=== PATIENT | male | born 1940 | race Caucasian/White ===

== ENCOUNTER 2017-08-03 20:01 | Inpatient (IN) | payer MEDICARE ==
[2017-08-03 20:43] LABS: ADD MAN DIFF? NO
[2017-08-03 20:46] LABS: BASO # 0.1 x10^3/uL (0.0-0.2); BASO % 1 % (0-3); EOS % 0 % (0-3); HEMATOCRIT 43.5 % (39.0-53.0); HEMOGLOBIN 14.9 g/dL (13.0-17.5); LYMPH # 1.3 x10^3/uL (1.0-4.8); LYMPH % 11 % (24-48); MEAN CORPUSCULAR HEMOGLOBIN 32 pg (25-35); MEAN CORPUSCULAR HGB CONC 34 g/dL (31-37); MEAN CORPUSCULAR VOLUME 92 fL (79-100); MONO % 8 % (0-9); NEUT # 9.5 x10^3uL (1.8-7.7); NEUT % 80 % (31-73); PLATELET COUNT 265 x10^3/uL (140-400); RED BLOOD COUNT 4.72 x10^6/uL (4.30-5.70); RED CELL DISTRIBUTION WIDTH 14.1 % (11.5-14.5); WHITE BLOOD COUNT 11.9 x10^3/uL (4.0-11.0)
[2017-08-03] MEDS: IV NORMAL SALINE 1000ML BAG 1,000 ML IV ×2 (20:48→22:00)
[2017-08-03 20:57] LABS: ANION GAP 13 (6-14); BLOOD UREA NITROGEN 25 mg/dL (8-26); BUN/CREATININE RATIO 17 (6-20); CARBON DIOXIDE 24 mmol/L (21-32); CHLORIDE 100 mmol/L (98-107); CREATININE 1.5 mg/dL (0.7-1.3); GFR 45.6; GLUCOSE 109 mg/dL (70-99); POTASSIUM 5.1 mmol/L (3.5-5.1); SODIUM 137 mmol/L (136-145)
[2017-08-03 20:58] LABS: PROTHROMBIN TIME PATIENT 12.9 SEC (11.7-14.0)
[2017-08-03 21:00] LABS: ETHANOL < 10 mg/dL (0-10)
[2017-08-03 21:07] LABS: LACTIC ACID 3.2 mmol/L (0.4-2.0)
[2017-08-03 21:09] LABS: NT-PRO BNP 1957 pg/mL (0-449)
[2017-08-03 21:10] LABS: TROPONINI 0.122 ng/mL (0.000-0.055)
[2017-08-03 21:12] LABS: ALBUMIN 3.2 g/dL (3.4-5.0); ALBUMIN/GLOBULIN RATIO 0.8 (1.0-1.7); ALK PHOS 122 U/L (46-116); ALT (SGPT) 21 U/L (16-63); AST (SGOT) 64 U/L (15-37); TOTAL BILIRUBIN 0.8 mg/dL (0.2-1.0); TOTAL PROTEIN 7.3 g/dL (6.4-8.2)
[2017-08-03 21:13] LABS: CREATINE KINASE 2899 U/L (39-308)
[2017-08-03 21:14] LABS: BASE EXCESS ABG -2 mmol/L (-3-3); HCO3 ABG 22 mmol/L (21-28); PCO2 ABG 34 mmHg (35-46); PH ABG 7.43 (7.35-7.45); PO2 ABG 79 mmHg (65-108); SAT O2 ABG 96 % (92-99)
[2017-08-03 22:24] LABS: BILIRUBIN,URINE NEGATIVE (NEG); CLARITY,URINE CLEAR; COLOR,URINE YELLOW; GLUCOSE,URINE NEGATIVE (NEG); NITRITE,URINE NEGATIVE (NEG); PROTEIN,URINE NEGATIVE (NEG-TRACE); UROBILINOGEN,URINE 0.2 mg/dL (0.2 mg/dL)
[2017-08-03 22:31] LABS: BARBITURATES NEG (NEG); BENZODIAZEPINES NEG (NEG); CANNABINOIDS NEG (NEG); COCAINE NEG (NEG); METHADONE NEG (NEG); OPIATES NEG (NEG); PHENCYCLIDINE NEG (NEG)
[2017-08-03 22:32] LABS: AMORPHOUS SEDIMENT,UR PRESENT /HPF; BACTERIA,URINE 0 /HPF (0-FEW); GRANULAR CASTS,URINE OCCASIONAL /HPF; HYALINE CASTS, URINE OCCASIONAL /HPF; RBC,URINE 0 /HPF (0-2); SQUAMOUS EPITHELIAL CELL,UR FEW /LPF; WBC,URINE 0 /HPF (0-4)
[2017-08-03 23:09] LABS: AMPHETAMINE/METHAMPHETAMINE NEG (NEG); ETHANOL, URINE NEG (NEG)
[2017-08-03] MEDS: ANTI-COAG MONITOR BY PHARMACY. MC (23:22)
[2017-08-04 01:06] LABS: LACTIC ACID 0.9 mmol/L (0.4-2.0)
[2017-08-04 04:54] LABS: TROPONINI 0.119 ng/mL (0.000-0.055)
[2017-08-04] MEDS: IV NORMAL SALINE 1000ML BAG 1,000 ML IV ×2 (08:10→19:57)
[2017-08-04] MEDS: IV NORMAL SALINE 250ML 250 ML IV (15:15)
[2017-08-04] MEDS: IOHEXOL 300 MG/ML 100ML VIAL. IV (16:30)
[2017-08-04] MEDS ORDERED: CONTRAST GIVEN MC (16:30)
[2017-08-04] MEDS ORDERED: RIVAROXABAN 10 MG TABLET. PO (17:00)
[2017-08-04] MEDS: ACETAMINOPHEN 325 MG TABLET. PO (19:56)
[2017-08-04] MEDS: APIXABAN 5 MG TABLET. PO (19:56)
[2017-08-05] MEDS: APIXABAN 5 MG TABLET. PO ×2 (07:22→21:17)
[2017-08-05 09:29] LABS: ANION GAP 7 (6-14); BLOOD UREA NITROGEN 9 mg/dL (8-26); CALCIUM 7.7 mg/dL (8.5-10.1); CARBON DIOXIDE 24 mmol/L (21-32); CHLORIDE 106 mmol/L (98-107); CREATININE 0.7 mg/dL (0.7-1.3); GFR 109.9; GLUCOSE 116 mg/dL (70-99); POTASSIUM 3.5 mmol/L (3.5-5.1); SODIUM 137 mmol/L (136-145)
[2017-08-05 09:34] LABS: CREATINE KINASE 411 U/L (39-308)
[2017-08-05] MEDS: amLODIPine BESYLATE 5 MG TABLET PO (23:33)
[2017-08-06] MEDS: DIGOXIN IV 500 MCG/2 ML AMPUL. IV ×3 (03:17→09:12)
[2017-08-06] MEDS: APIXABAN 5 MG TABLET. PO (09:09)
[2017-08-06] MEDS: amLODIPine BESYLATE 5 MG TABLET PO (09:10)
[2017-08-06] MEDS ORDERED: HEPARIN for IV BOLUS 10,000 UNIT/10 ML VIAL. IV (13:30)
[2017-08-06] MEDS: HEPARIN 25,000UTS/500ML PREMIX 500 ML IV (14:29)
[2017-08-06 15:29] LABS: ANION GAP 6 (6-14); BLOOD UREA NITROGEN 10 mg/dL (8-26); CALCIUM 7.6 mg/dL (8.5-10.1); CARBON DIOXIDE 27 mmol/L (21-32); CHLORIDE 106 mmol/L (98-107); CREATININE 0.8 mg/dL (0.7-1.3); GFR 94.2; GLUCOSE 132 mg/dL (70-99); POTASSIUM 4.2 mmol/L (3.5-5.1); SODIUM 139 mmol/L (136-145)
[2017-08-06 21:37] LABS: UNFRACTIONATED HEPARIN TESTING 1.06 IU/mL (0.30-0.70)
[2017-08-07 05:28] LABS: HEMATOCRIT 37.2 % (39.0-53.0); HEMOGLOBIN 12.7 g/dL (13.0-17.5); MEAN CORPUSCULAR HEMOGLOBIN 32 pg (25-35); MEAN CORPUSCULAR HGB CONC 34 g/dL (31-37); MEAN CORPUSCULAR VOLUME 92 fL (79-100); PLATELET COUNT 233 x10^3/uL (140-400); RED BLOOD COUNT 4.03 x10^6/uL (4.30-5.70); RED CELL DISTRIBUTION WIDTH 14.4 % (11.5-14.5); WHITE BLOOD COUNT 8.2 x10^3/uL (4.0-11.0)
[2017-08-07 05:40] LABS: UNFRACTIONATED HEPARIN TESTING 0.51 IU/mL (0.30-0.70)
[2017-08-07] MEDS: amLODIPine BESYLATE 5 MG TABLET PO (08:05)
[2017-08-07 11:12] LABS: UNFRACTIONATED HEPARIN TESTING 0.42 IU/mL (0.30-0.70)
[2017-08-08] MEDS: HEPARIN 25,000UTS/500ML PREMIX 500 ML IV (02:50)
[2017-08-08 05:13] LABS: UNFRACTIONATED HEPARIN TESTING 0.22 IU/mL (0.30-0.70)
[2017-08-08] MEDS: amLODIPine BESYLATE 5 MG TABLET PO (08:30)
[2017-08-08 12:50] LABS: UNFRACTIONATED HEPARIN TESTING 0.21 IU/mL (0.30-0.70)
[2017-08-08] MEDS: ANTI-COAG MONITOR BY PHARMACY. MC (13:30)
[2017-08-08 19:24] LABS: UNFRACTIONATED HEPARIN TESTING 0.28 IU/mL (0.30-0.70)
[2017-08-09 07:28] LABS: HEMATOCRIT 42.7 % (39.0-53.0); HEMOGLOBIN 14.6 g/dL (13.0-17.5); MEAN CORPUSCULAR HEMOGLOBIN 32 pg (25-35); MEAN CORPUSCULAR HGB CONC 34 g/dL (31-37); MEAN CORPUSCULAR VOLUME 92 fL (79-100); PLATELET COUNT 294 x10^3/uL (140-400); RED BLOOD COUNT 4.63 x10^6/uL (4.30-5.70); RED CELL DISTRIBUTION WIDTH 14.7 % (11.5-14.5); WHITE BLOOD COUNT 8.2 x10^3/uL (4.0-11.0)
[2017-08-09 07:55] LABS: ANION GAP 10 (6-14); BLOOD UREA NITROGEN 9 mg/dL (8-26); CALCIUM 8.1 mg/dL (8.5-10.1); CARBON DIOXIDE 24 mmol/L (21-32); CHLORIDE 103 mmol/L (98-107); CREATININE 0.8 mg/dL (0.7-1.3); GFR 94.2; GLUCOSE 113 mg/dL (70-99); MAGNESIUM 2.2 mg/dL (1.8-2.4); SODIUM 137 mmol/L (136-145)
[2017-08-09] MEDS: amLODIPine BESYLATE 5 MG TABLET PO (08:43)
[2017-08-09] MEDS ORDERED: LIDOCAINE 2%/EPI 1:100,000 20 ML VIAL. (13:22)
[2017-08-09] MEDS ORDERED: fentaNYL PF VIAL 250 MCG/5 ML VIAL (13:52)
[2017-08-09] MEDS ORDERED: MIDAZOLAM HCL/PF 5 MG/5 ML VIAL. (13:53)
[2017-08-09] MEDS: LIDOCAINE WITH 8.4% SOD BICARB 3 ML DISP.SYRIN. IJ (14:15)
[2017-08-09] MEDS: fentaNYL PF VIAL 250 MCG/5 ML VIAL IV (15:05)
[2017-08-09] MEDS: LIDOCAINE 2%/EPI 1:100,000 20 ML VIAL. IJ (15:31)
[2017-08-09] MEDS: MIDAZOLAM HCL/PF 5 MG/5 ML VIAL. IV (15:31)
[2017-08-09] MEDS: BACITRACIN 50,000 UNIT in IV NORMAL SALINE 250ML 250 ML IRR (15:32)
[2017-08-09] MEDS ORDERED: NO ANTICOAGULANT THERAPY. MC (17:30)
[2017-08-09] MEDS: ceFAZolin SODIUM IV Push 1 GM VIAL. IVP (21:22)
[2017-08-09] MEDS: ACETAMINOPHEN 325 MG TABLET. PO (21:22)
[2017-08-10] MEDS: amLODIPine BESYLATE 5 MG TABLET PO (09:34)
[2017-08-10] MEDS: APIXABAN 5 MG TABLET. PO ×2 (14:23→20:57)
[2017-08-10] MEDS: ACETAMINOPHEN 325 MG TABLET. PO (14:24)
[2017-08-10] MEDS ORDERED: ONDANSETRON PF 4 MG/2 ML VIAL. IV (15:15)
[2017-08-10] MEDS ORDERED: MORPHINE SULFATE 4 MG/ML DISP.SYRIN. IV (15:15)
[2017-08-10] MEDS ORDERED: DOCUSATE SODIUM 100 MG CAPSULE. PO (15:15)
[2017-08-10] MEDS ORDERED: hydrALAZINE 20 MG/ML VIAL. IVP (15:15)
[2017-08-10] MEDS ORDERED: ACETAMINOPHEN 325 MG TABLET. PO (15:15)
[2017-08-10] MEDS: traMADol 50 MG TABLET PO (20:57)
[2017-08-11] MEDS: traMADol 50 MG TABLET PO ×2 (04:43→11:28)
[2017-08-11 05:05] LABS: ADD MAN DIFF? NO
[2017-08-11 05:18] LABS: BASO # 0.1 x10^3/uL (0.0-0.2); BASO % 1 % (0-3); EOS # 0.3 x10^3/uL (0.0-0.7); EOS % 4 % (0-3); HEMATOCRIT 38.4 % (39.0-53.0); LYMPH # 1.8 x10^3/uL (1.0-4.8); LYMPH % 25 % (24-48); MEAN CORPUSCULAR HEMOGLOBIN 32 pg (25-35); MEAN CORPUSCULAR HGB CONC 34 g/dL (31-37); MEAN CORPUSCULAR VOLUME 93 fL (79-100); MONO # 0.9 x10^3/uL (0.0-1.1); MONO % 12 % (0-9); NEUT # 4.2 x10^3uL (1.8-7.7); NEUT % 58 % (31-73); PLATELET COUNT 268 x10^3/uL (140-400); RED BLOOD COUNT 4.12 x10^6/uL (4.30-5.70); RED CELL DISTRIBUTION WIDTH 14.7 % (11.5-14.5); WHITE BLOOD COUNT 7.3 x10^3/uL (4.0-11.0)
[2017-08-11 05:44] LABS: ANION GAP 8 (6-14); BLOOD UREA NITROGEN 14 mg/dL (8-26); CALCIUM 8.2 mg/dL (8.5-10.1); CARBON DIOXIDE 25 mmol/L (21-32); CHLORIDE 104 mmol/L (98-107); CREATININE 1.1 mg/dL (0.7-1.3); GFR 65.3; GLUCOSE 90 mg/dL (70-99); POTASSIUM 4.2 mmol/L (3.5-5.1); SODIUM 137 mmol/L (136-145)
[2017-08-11] MEDS: APIXABAN 5 MG TABLET. PO (08:56)
[2017-08-11] MEDS: hydrALAZINE 20 MG/ML VIAL. IVP (09:50)
== END 2017-08-11 18:55 | disposition home or self-care (01) | DRG 242 ==
LOC: ER 20:01 → 2 SOUTH 20:56
PROC: 0JH606Z Insertion of Pacemaker, Dual Chamber into Chest Subcutaneous Tissue and Fascia, Open Approach (ICD-10-PCS; principal; 2017-08-09)
PROC: 02H63JZ Insertion of Pacemaker Lead into Right Atrium, Percutaneous Approach (ICD-10-PCS; 2017-08-09)
PROC: 02HK3JZ Insertion of Pacemaker Lead into Right Ventricle, Percutaneous Approach (ICD-10-PCS; 2017-08-09)
DX: I49.5 Sick sinus syndrome (principal); J96.00 Acute respiratory failure, unspecified whether with hypoxia or hypercapnia; R74.8 Abnormal levels of other serum enzymes; J44.9 Chronic obstructive pulmonary disease, unspecified; I10 Essential (primary) hypertension; I45.10 Unspecified right bundle-branch block; F41.9 Anxiety disorder, unspecified; I48.0 Paroxysmal atrial fibrillation; F17.210 Nicotine dependence, cigarettes, uncomplicated; Z59.0 Homelessness; Z79.01 Long term (current) use of anticoagulants; Z91.19 Patient's noncompliance with other medical treatment and regimen; Z86.711 Personal history of pulmonary embolism; Z86.718 Personal history of other venous thrombosis and embolism; Z80.3 Family history of malignant neoplasm of breast
CPT/HCPCS: 33208; 36415; 36600; 71045; 71046; 78582; 80048; 80053; 80307; 81001; 82550; 82805; 83605; 83735; 83880; 84484; 85025; 85027; 85520; 85610; 87040; 93005; 93970; 96360; 96374; 97162-GP; 97165-GO; 99152; 99153; 99285; 99285-25; A9540; A9558; C1785; C1898; G0480; J0360; J0690; J1160; J1650; J2250; J3010; J3490; J7030; J7050